=== PATIENT | male | born 1985 | race American Indian/Alaskan Native ===

== ENCOUNTER 2016-02-27 12:19 | Outpatient (CLI) | payer OTHER ==
--- NOTE | 2016-02-29 09:37 | Magnetic Resonance Report ---
MR LOWER EXTREMITY JOINT LEFT WITHOUT CONTRAST HISTORY: Left knee pain and swelling. TECHNIQUE: Multiple T1 and T2-weighted images with and without fat suppression. COMPARISON : None at this facility. FINDINGS: A horizontal cleavage tear is identified in the body of the medial meniscus. There appears to be relative sparing of the anterior and posterior horns. The tear does appear to extend to the tibial articular surface on the coronal images. The lateral meniscus is normal. The ACL, PCL, MCL, LCL complex and extensor complex are intact. No ligamentous injury. The popliteus is unremarkable. There is normal bone marrow signal throughout the visualized left knee. The cartilage is intact. No cartilage defect or significant thinning. There is a moderate joint effusion which extends to the suprapatellar bursa. No popliteal cyst. The periarticular musculature are within normal limits. IMPRESSION: Horizontal cleavage tear of the medial meniscus. Joint effusion.
== END 2016-02-27 12:20 | disposition home or self-care (01) ==
LOC: MRI 12:19
PROVIDERS: ATTEND Internal Medicine
DX: S83.242A Other tear of medial meniscus, current injury, left knee, initial encounter (principal); M25.462 Effusion, left knee; X58.XXXA Exposure to other specified factors, initial encounter; Y93.89 Activity, other specified; Y92.89 Other specified places as the place of occurrence of the external cause; Y99.8 Other external cause status
CPT/HCPCS: 73721